=== PATIENT | male | born 1985 | race African-American/Black ===

== ENCOUNTER 2021-02-26 09:17 | Emergency (ER) | payer SELFPAY ==
[~2021-02-26] VITALS: Ht 177.8 cm; Wt 60.2 kg
[2021-02-26 11:32] VITALS: BP 121/71
== END 2021-02-26 11:35 | disposition home or self-care (01) ==
LOC: ED 11:10
DX: J06.9 Acute upper respiratory infection, unspecified (principal); Z59.0 Homelessness
CPT/HCPCS: 71045; 99283